=== PATIENT | male | born 2000 | race Caucasian/White ===

== ENCOUNTER 2024-03-14 13:05 | Emergency (ER) | payer OTHER ==
[2024-03-14 13:20] VITALS: BP 120/83; PULSE 95; RESP 18; TEMP 98.2; BMI 35.0
[2024-03-14] MEDS ORDERED: IBUPROFEN 600 MG TABLET (FP) PO ONE (13:52)
[2024-03-14] MEDS ORDERED: DEXAMETHASONE SOD PHOSPHATE 10 MG/1 ML VIAL ONE (13:53)
[2024-03-14] MEDS: IBUPROFEN 600 MG TABLET (FP) PO ONE (14:03)
[2024-03-14] MEDS: DEXAMETHASONE 4 MG TABLET (FP) PO ONE (14:03)
[2024-03-14 14:35] LABS: THROAT:GRP A STREP DETECTED (NOTDETECTED)
[2024-03-14] MEDS ORDERED: PENICILLIN G BENZATHINE 1,200,000 UNIT/2 ML PFS IM ONE (14:49)
[2024-03-14] MEDS: PENICILLIN G BENZATHINE 1,200,000 UNIT/2 ML PFS IM ONE (14:54)
== END 2024-03-14 15:01 | disposition home or self-care (01) ==
LOC: JER 13:05
DX: R07.0 Pain in throat (principal); R50.9 Fever, unspecified; R11.2 Nausea with vomiting, unspecified; R53.81 Other malaise; R53.1 Weakness; M79.10 Myalgia, unspecified site; R51.9 Headache, unspecified; J02.0 Streptococcal pharyngitis; Z20.822 Contact with and (suspected) exposure to COVID-19
CPT/HCPCS: 0241U-QW; 87651; 96372; 99284-25